=== PATIENT | female | born 2000 | race Caucasian/White ===

== ENCOUNTER 2018-05-31 16:17 | Emergency (ER) | payer SELFPAY ==
[2018-05-31] MEDS ORDERED: ACETAMINOPHEN 325 MG TABLET PO ONE (16:55)
--- NOTE | 2018-05-31 16:57 | ER Document Report ---
ED GI/ - General Chief Complaint: Abdominal Pain Stated Complaint: ABDOMINAL PAIN Time Seen by Provider: 05/31/18 16:54 Mode of Arrival: Ambulatory Information source: Patient Notes: Chief complaint: abdominal pain: History of complain:( obtained from----patient) 18 years old female who is , about 15 weeks presents today with lower abdominal pain which is dull in nature and not crampy. No vaginal discharges. No nausea vomiting fever chills or other constitutional symptoms. Denies any dysuria frequency urgency. Onset: Gradual Duration: Last 2 days Severity: Moderate Quality: Dull Context: Exacerbating factor and relieving factors: REVIEW OF SYSTEMS: CONSTITUTIONAL : Denies fever, chills, or sweats. Denies recent illness. EENT: Denies eye, ear, throat, or mouth pain or symptoms. Denies nasal or sinus congestion or discharge. Denies throat, tongue, or mouth swelling or difficulty swallowing. CARDIOVASCULAR: Denies chest pain. Denies palpitations or racing or irregular heart beat. Denies ankle edema. RESPIRATORY: Denies cough, cold, or chest congestion. Denies shortness of breath, difficulty breathing, or wheezing. GASTROINTESTINAL: Denies distention. Denies nausea, vomiting, or diarrhea. Denies blood in vomitus, stools, or per rectum. Denies black, tarry stools. Denies constipation. GENITOURINARY: Denies difficulty urinating, painful urination, burning, frequency, blood in urine, or discharge. FEMALE GENITOURINARY: Denies vaginal bleeding, heavy or abnormal periods, irregular periods. Denies vaginal discharge or odor. MUSCULOSKELETAL: Denies back or neck pain or stiffness. Denies joint pain or swelling. SKIN: Denies rash, lesions or sores. HEMATOLOGIC : Denies easy bruising or bleeding. LYMPHATIC: Denies swollen, enlarged glands. NEUROLOGICAL: Denies confusion or altered mental status. Denies passing out or loss of consciousness. Denies dizziness or lightheadedness. Denies headache. Denies weakness or paralysis or loss of use of either side. Denies problems with gait or speech. Denies sensory loss, numbness, or tingling. Denies seizures. PSYCHIATRIC: Denies anxiety or stress. Denies depression, suicidal ideation, or homicidal ideation. ALL OTHER SYSTEMS REVIEWED AND NEGATIVE. PHYSICAL EXAMINATION: GENERAL: Well-appearing, well-nourished and in no acute distress. HEAD: Atraumatic, normocephalic. EYES: Pupils equal round and reactive to light, extraocular movements intact, conjunctiva are normal. ENT: Nares patent, oropharynx clear without exudates. Moist mucous membranes. NECK: Normal range of motion, supple without lymphadenopathy LUNGS: Breath sounds clear to auscultation bilaterally and equal. No wheezes rales or rhonchi. HEART: Regular rate and rhythm without murmurs ABDOMEN: Soft, nontender, nondistended abdomen. No guarding, no rebound. No masses appreciated. Female : deferred Musculoskeletal: Normal range of motion, no pitting or edema. No cyanosis. NEUROLOGICAL: Cranial nerves grossly intact. Normal speech, normal gait. Normal sensory, motor exams PSYCH: Normal mood, normal affect. SKIN: Warm, Dry, normal turgor, no rashes or lesions noted. Dictation was performed using [employer] voice recognition software TRAVEL OUTSIDE OF THE [place] IN LAST 30 DAYS: No - HPI Notes: 05/31/18 16:56 Dictated - Related Data Allergies/Adverse Reactions: No Known Allergies Allergy (Unverified 05/31/18 16:19) Past Medical History - Social History Smoking Status: Never Smoker Chew tobacco use (# tins/day): No Frequency of alcohol use: None Drug Abuse: None Lives with: Family Family History: Reviewed & Not Pertinent Patient has suicidal ideation: No Patient has homicidal ideation: No Renal/ Medical History: Denies: Hx Peritoneal Dialysis Review of Systems - Review of Systems Notes: Dictated Physical Exam - Vital signs Vitals: Temp Pulse Resp BP Pulse Ox 97.8 F 84 18 133/63 H 98 05/31/18 16:36 05/31/18 16:36 05/31/18 16:36 05/31/18 16:36 05/31/18 16:36 - Notes Notes: Dictated Course - Vital Signs Vital signs: Temp Pulse Resp BP Pulse Ox 97.8 F 84 18 133/63 H 98 05/31/18 16:36 05/31/18 16:36 05/31/18 16:36 05/31/18 16:36 05/31/18 16:36 - Laboratory Result Diagrams: 05/31/18 17:30 Laboratory results interpreted by me: 05/31/18 05/31/18 05/31/18 17:25 17:30 17:30 WBC 12.2 H RDW 15.0 H Seg Neutrophils % 80.1 H Lymphocytes % 11.2 L Absolute Neutrophils 9.8 H Beta HCG, Quant 30562.00 H Urine Urobilinogen 2.0 H Ur Leukocyte Esterase LARGE H - Diagnostic Test Radiology reviewed: Reports reviewed - Radiology report does live intrauterine of 15 weeks and 5 days Discharge - Discharge Clinical Impression: Abdominal pain affecting Condition: Fair Disposition: HOME, SELF-CARE Instructions: ([facility])
[2018-05-31 17:42] LABS: ABSOLUTE EOSINOPHILS # (AUTO) 0.3 10^3/uL (0.0-0.6); ABSOLUTE LYMPHOCYTES (AUTO) 1.4 10^3/uL (0.5-4.7); ABSOLUTE MONOCYTES (AUTO) 0.8 10^3/uL (0.1-1.4); ABSOLUTE NEUT (AUTO) 9.8 10^3/uL (1.7-8.2); BASOPHILS % (AUTO) 0.3 % (0-2); EOSINOPHILS % (AUTO) 2.1 % (0-6); HEMATOCRIT 37.4 % (36.0-47.0); HEMOGLOBIN 12.9 g/dL (12.0-15.5); LYMPHOCYTES % (AUTO) 11.2 % (13-45); MEAN CORPUSCULAR HGB CONC 34.5 g/dL (32.0-36.0); MEAN CORPUSCULAR VOLUME 81 fl (80-97); MONOCYTES % (AUTO) 6.3 % (3-13); PLATELET COUNT 245 10^3/uL (150-450); RED BLOOD COUNT 4.61 10^6/uL (3.72-5.28); SEGMENTED NEUTROPHILS % (AUTO) 80.1 % (42-78); TOTAL CELLS COUNTED % (AUTO) 100 %; WHITE BLOOD COUNT 12.2 10^3/uL (4.0-10.5)
[2018-05-31 18:01] LABS: APPEARANCE,URINE TURBID; BILIRUBIN,URINE NEGATIVE (NEGATIVE); COLOR,URINE YELLOW; GLUCOSE, URINE NEGATIVE (NEGATIVE); KETONES,URINE NEGATIVE (NEGATIVE); LEUKOCYTE ESTERASE,URINE LARGE (NEGATIVE); NITRITE,URINE NEGATIVE (NEGATIVE); PROTEIN,URINE NEGATIVE (NEGATIVE); URINE SPECIFIC GRAVITY 1.014
--- NOTE | 2018-05-31 18:29 | RADIOLOGY REPORT (SQ) ---
EXAM DESCRIPTION: U/S 1TRIMESTER/1GEST W/DOPPLER COMPLETED DATE/TIME: 05/31/2018 6:12 pm REASON FOR STUDY: and abdominal pain COMPARISON: None. TECHNIQUE: Transabdominal static and realtime grayscale images acquired of the pelvis. Additional se lected spectral and color Doppler images recorded. All images stored on PACs. bHCG: Not applicable. CLINICAL DATES: 14 week 3 day. LIMITATIONS: None. FINDINGS: FETUS: Single Living intrauterine . ULTRASOUND EGA: 15 week 5 day. ULTRASOUND JOHN: 11/17/2018. EFW: Not applicable less than 20 weeks. CRL: 9.8 cm. FHR: 155 beats per minute. SURVEY: No visualized anomalies. AMNIOTIC FLUID: Adequate amount. PLACENTA: Posterior low lying. SUBCHORIONIC BLEED: No. SIZE OF BLEED: Not applicable. UTERUS: No masses. No anomalies. CERVICAL LENGTH: 4 cm. Closed. RIGHT ADNEXA: Ovary not identified due to poor acoustical window. No adnexal free fluid. No adnexal masses. LEFT ADNEXA: Ovary not identified due to poor acoustical window. No adnexal free fluid. No adnexal masses. FREE FLUID: None. OTHER: No other significant finding. IMPRESSION: LIVING INTRAUTERINE . EGA 15 WEEK 5 DAY. POSTERIOR LOW LYING PLACENTA. WILL NEED FOLLOW-UP PRIOR TO DELIVERY. Trimester of : First - 0 to 13 weeks. TECHNICAL DOCUMENTATION: JOB ID: [id number] [employer]- All Rights Reserved rev Reading location - IP/workstation name: [email or web address]
[2018-05-31 20:09] VITALS: BP 131/70
== END 2018-05-31 19:58 | disposition home or self-care (01) ==
LOC: ER 16:17
DX: O26.92 Pregnancy related conditions, unspecified, second trimester (principal); R10.9 Unspecified abdominal pain; Z3A.15 15 weeks gestation of pregnancy
CPT/HCPCS: 36415; 76801; 81001; 84702; 85025; 86900; 86901; 93976; 99284

== ENCOUNTER 2018-07-12 15:19 | Outpatient (CLI) | payer MEDICAID ==
[2018-07-12] MEDS: RINGERS SOLUTION,LACTATED 1,000 ML IV ONE (15:58)
[2018-07-12 16:14] LABS: APPEARANCE,URINE SLIGHTLY-CLOUDY; BILIRUBIN,URINE NEGATIVE (NEGATIVE); COLOR,URINE YELLOW; GLUCOSE, URINE NEGATIVE (NEGATIVE); KETONES,URINE TRACE mg/dL (NEGATIVE); LEUKOCYTE ESTERASE,URINE TRACE (NEGATIVE); NITRITE,URINE NEGATIVE (NEGATIVE); PROTEIN,URINE NEGATIVE (NEGATIVE); URINE SPECIFIC GRAVITY 1.015; UROBILINOGEN,URINE NEGATIVE mg/dL (<2.0)
[2018-07-12 16:22] LABS: URINE AMPHETAMINES SCREEN NEGATIVE; URINE BARBITURATES SCREEN NEGATIVE; URINE BENZODIAZEPINES SCREEN NEGATIVE; URINE COCAINE SCREEN NEGATIVE; URINE MARIJUANA (THC) SCREEN NEGATIVE; URINE METHADONE SCREEN NEGATIVE; URINE PHENCYCLIDINE SCREEN NEGATIVE
--- NOTE | 2018-07-12 16:28 | L&D Progress Notes ---
PROGRESS NOTES Datetime Report Generated by CPN: 07/12/2018 16:28 PROGRESS NOTE Impression: Labor Procedures: Ultrasound Procedures- Other: vaginal cultures Plan: Continue Present Management; Antibiotic Therapy; Anticipate Vaginal Delivery Vital Signs : Reviewed; Within Normal Limits Comment: Pt sengt to L_D from office secondary to cervical dilatation at 221-6/7 weeks. She has been seen only twice in the office. Her anantomy scan was today and bulging membranes were noted and a CL could not be obtained. Vaginal cultures obtained, shine catheter placed, pt in reverse [place]. Will inquire whether she will be accepted as a transfer to [place]. Pt is acceptable to this plan. VAGINAL EXAM Dilatation: 3-4 Effacement: 80-90 Station: high Contractions: none MEMBRANES Membranes: Bulging FETUS A FHR - Baseline: 140s Monitoring: External US Variability: Moderate 6-25bpm Accelerations: 10X10 Decelerations: None FHR Category: Category I : 21.6 SIGNATURE SIGNATURE: [id number] Signature: with User ID: [email or web address]
[2018-07-12] MEDS ORDERED: PENICILLIN G POTASSIUM 5,000,000 UNIT in DEXTROSE 5%-WATER 100 ML IV ONE (16:31)
[2018-07-12] MEDS: PENICILLIN G-K 5 MILLION UNIT VIAL IV ONE (16:54)
--- NOTE | 2018-07-12 17:15 | RADIOLOGY REPORT (SQ) ---
EXAM DESCRIPTION: U/S OB LIMITED COMPLETED DATE/TIME: 07/12/2018 5:01 pm REASON FOR STUDY: 22 weeks with bulging membranes COMPARISON: None. TECHNIQUE: Limited transabdominal trans labial grayscale ultrasound for evaluation of specific reque sted obstetrical parameters. LIMITATIONS: None. FINDINGS: CERVICAL LENGTH: 1.9 cm. Dilated 1.4 cm the internal os. FHR: 133 beats per minute. PRESENTATION: Cephalic. PLACENTA: Low lying posterior placenta. ANATOMY: Not assessed OTHER: No other significant findings. IMPRESSION: LIMITED OBSTETRICAL ULTRASOUND WITH MEASURED PARAMETERS DELINEATED ABOVE. Trimester of : Second trimester - 13 weeks 1 day to 27 weeks 6 days. TECHNICAL DOCUMENTATION: JOB ID: [id number] [employer]- All Rights Reserved Reading location - IP/workstation name: [email or web address]
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
[2018-07-12 17:24] LABS: BACTERIA (WET MOUNT) 3+ BACTERIA SEEN; EPITHELIALS (WET MOUNT) 3+ EPITHELIALS SEEN; RBCS (WET MOUNT) NO RBCS SEEN; T.VAGINALIS (WET MOUNT) NO TRICHOMONAS SEEN; WBCS (WET MOUNT) 2+ WBCS SEEN; YEAST (WET MOUNT) NO YEAST SEEN
[2018-07-12 18:47] LABS: CHLAM PCR NOT DETECTED (NOT DETECT); GON PCR NOT DETECTED (NOT DETECT)
[2018-07-12] MEDS ORDERED: TERBUTALINE SULFATE INJ/PF 1 MG/1 ML SDV ONE (19:17)
[2018-07-12] MEDS: TERBUTALINE SULFATE INJ/PF 1 MG/1 ML SDV SUBCUT ONE ×2 (19:22→19:59)
[2018-07-12] MEDS ORDERED: PENICILLIN G-K 5 MILLION UNIT VIAL ONE (20:18)
[2018-07-12] MEDS: PENICILLIN G-K 5 MILLION UNIT VIAL ONE (20:33)
[2018-07-12] MEDS ORDERED: RINGERS SOLUTION,LACTATED 1,000 ML IV PRN (20:38)
[2018-07-12] MEDS: PENICILLIN G POTASSIUM 2,500,000 UNIT in DEXTROSE 5%-WATER 50 ML IV SCH (20:40)
== END 2018-07-12 20:57 | disposition short-term general hospital (02) ==
LOC: LC 15:19
PROVIDERS: ATTEND Obstetrics & Gynecology
DX: Z34.92 Encounter for supervision of normal pregnancy, unspecified, second trimester (principal); Z3A.13 13 weeks gestation of pregnancy
CPT/HCPCS: 94760; 87210; 81001; 80307; 87491; 87591; 76815; J2540; J3105

== ENCOUNTER 2018-09-26 21:32 | Emergency (ER) | payer MEDICAID ==
[2018-09-27] MEDS ORDERED: HYDROXYZINE PAMOATE 50 MG CAPSULE PO ONE (01:03)
[2018-09-27] MEDS ORDERED: IBUPROFEN 600 MG TABLET PO ONE (01:08)
--- NOTE | 2018-09-27 01:09 | ER Document Report ---
HPI - HPI Patient complains to provider of: Anxiety attack Time Seen by Provider: 09/27/18 00:49 Onset: Yesterday Onset/Duration: Sudden, Gone Quality of pain: Achy Severity: Mild Pain Level: 2 Context: 18-year-old female presented to ED for complaint of an anxiety attack tonight. She states she has had these in the past. She states she has a history of anxiety depression and panic attacks. She states she was visiting during her boyfriend and his residents watching a movie when she also only started hyperventilating and passed out. Patient states she did not have a distance any stress or any other reason for the panic attack. She states she has a headache at this time. When I walked into the room she was sleeping quietly in the bed and her boyfriend woke her up. After she woke up, she stated she was having a headache. When boyfriend states she passed out, she was laying on the couch and did not fall off the couch or hit her head. Associated Symptoms: Other - Headache and anxiety attack Exacerbated by: Denies Relieved by: Denies Similar symptoms previously: Yes Recently seen / treated by doctor: No - ROS ROS below otherwise negative: Yes - CONSTITUTIONAL Constitutional: DENIES: Fever, Chills - EENT EENT: DENIES: Sore Throat, Ear Pain, Nasal Drainage-Clear, Nasal Drainage-Pur ulent, Congestion, Eye problems - NEURO Neurology: REPORTS: Headache. DENIES: Weakness, Vision blurred, Dizzinesss / Vertigo - CARDIOVASCULAR Cardiovascular: DENIES: Chest pain - RESPIRATORY Respiratory: DENIES: Trouble Breathing, Coughing - GASTROINTESTINAL Gastrointestinal: DENIES: Abdominal Pain, Nausea, Patient vomiting, Diarrhea, Constipation, Black / Bloody Stools - URINARY Urinary: DENIES: Dysuria, Urgency, Frequency - REPRODUCTIVE Reproductive: DENIES: :, Postmenopausal, Abnormal bleeding / discharge - MUSCULOSKELETAL Musculoskeletal: DENIES: Extremity pain, Back Pain, Neck Pain, Swelling - DERM Skin Color: Normal, [place] Skin Problems: None Past Medical History - General Information source: Patient - Social History Smoking Status: Former Smoker Cigarette use (# per day): No Chew tobacco use (# tins/day): No Smoking Education Provided: No Frequency of alcohol use: None Drug Abuse: None Lives with: Parents Family History: Reviewed & Not Pertinent Patient has suicidal ideation: No Patient has homicidal ideation: No - Past Medical History Cardiac Medical History: Reports: Hx Hypercholesterolemia Pulmonary Medical History: Reports: None EENT Medical History: Reports: None Neurological Medical History: Reports: None Endocrine Medical History: Reports: None Renal/ Medical History: Reports: None Malignancy Medical History: Reports: None GI Medical History: Reports: None Musculoskeletal Medical History: Reports None Skin Medical History: Reports None Psychiatric Medical History: Reports: Hx Anxiety, Hx Depression - anxiety attacks, Other - Panic attack Traumatic Medical History: Reports: None Infectious Medical History: Reports: None Surgical Hx: Negative Past Surgical History: Reports: None - Immunizations Immunizations up to date: Yes Vertical Provider Document - CONSTITUTIONAL Agree With Documented VS: Yes Exam Limitations: No Limitations General Appearance: WD/WN, No Apparent Distress - INFECTION CONTROL TRAVEL OUTSIDE OF THE [place] IN LAST 30 DAYS: No - HEENT HEENT: Atraumatic, Normal ENT Exam, Normocephalic, PERRLA - NECK Neck: Normal Inspection - RESPIRATORY Respiratory: Breath Sounds Normal, No Respiratory Distress, Chest Non-Tender - CARDIOVASCULAR Cardiovascular: Regular Rate, Regular Rhythm - GI/ABDOMEN Gastrointestinal: Abdomen Soft, Abdomen Non-Tender, No Organomegaly, Normal Bowel Sounds - BACK Back: Normal Inspection - MUSCULOSKELETAL/EXTREMETIES Musculoskeletal/Extremeties: MAEW, FROM, Non-Tender - NEURO Level of Consciousness: Awake, Alert, Appropriate Motor/Sensory: No Motor Deficit, No Sensory Deficit, No Pronator Drift - DERM Integumentary: Warm, Dry, No Rash Course - Re-evaluation Re-evalutation: 09/27/18 01:14 Patient was resting quietly sleeping when I first examined her. When I woke her up she was alert oriented pupils equal and react to light respirations regular and unlabored speaking in full sentences and able to walk with a even steady gait. Patient had equal reflexes on either side equal strength on either side. She was treated with ibuprofen for her headache and Vistaril to help her to rest due to the fact that she said she was concerned she would be able to go back to sleep after having a panic attack tonight. Patient has been instructed to follow-up with her primary care provider and her mental health provider by telephone tomorrow to schedule follow-up appointments for this panic attack. Patient was able to verbalize understanding and agreement with treatment plan and patient was discharged home. - Vital Signs Vital signs: Temp Pulse Resp BP Pulse Ox 99.4 F 79 18 131/77 H 79 L 09/26/18 21:33 09/26/18 21:33 09/26/18 21:33 09/26/18 21:33 09/26/18 21:33 Discharge - Discharge Clinical Impression: Panic attacks Condition: Stable Disposition: HOME, SELF-CARE Instructions: Anxiety ([facility]) Additional Instructions: You were seen today for a panic attack and a headache. You state you have a history of anxiety depression and panic attacks. You were treated today with Vistaril for the anxiety and ibuprofen for your headache. Please follow-up with your mental health provider in the morning by telephone to schedule a follow-up appointment. Please drink more water as you need to increase your p.o. intake. Ibuprofen Ibuprofen is an excellent, safe drug for pain control. In addition, it has potent antiinflammatory effects which are beneficial, especially in the treatment of injuries, arthritis, or tendonitis. It's best to take ibuprofen with food. Persons with ulcer disease or allergy to aspirin should notify their physician of this before taking ibuprofen. Take the medication exactly as prescribed. Don't take additional doses unless instructed to do so by your doctor. If you develop wheezing, shortness of breath, hives, faintness, stomach pain, vomiting, or dark black stools, return for re-evaluation at once. FOLLOW-UP CARE: If you have been referred to a physician for follow-up care, call the physicians office for an appointment as you were instructed or within the next two days. If you experience worsening or a significant change in your symptoms, notify the physician immediately or return to the Emergency Department at any time for re-evaluation. Forms: Elevated Blood Pressure Referrals: MARIELY BENNETT PA-C [Primary Care Provider] - Follow up as needed
[2018-09-27 01:17] VITALS: BP 120/70
== END 2018-09-27 01:19 | disposition home or self-care (01) ==
LOC: ER 21:32
DX: F41.9 Anxiety disorder, unspecified (principal); R51 Headache; E78.00 Pure hypercholesterolemia, unspecified
CPT/HCPCS: 99283; J3490 ×2

== ENCOUNTER 2018-10-30 11:51 | Emergency (ER) | payer MEDICAID, OTHER ==
[2018-10-30 12:12] VITALS: BP 136/72
--- NOTE | 2018-10-30 12:20 | ER Document Report ---
ED Extremity Problem, Lower - General Chief Complaint: Ankle Pain Stated Complaint: ANKLE INJURY Time Seen by Provider: 10/30/18 12:09 Primary Care Provider: [facility] [Provider Group] - Follow up as needed MARIELY BENNETT PA-C [Primary Care Provider] - Follow up as needed Mode of Arrival: Wheelchair Information source: Patient Notes: 18-year-old female presents to ED for complaint of left ankle pain for the last week. She states a week ago she tried to jump over a [place] and landed wrong in the ditch. She states she has been walking on it but today the pain was too bad for her to walk on. She is alert oriented respirations regular and unlabored speaking in full sentences. There is no bruising, no swelling, and no abnormalities noted. She does have full range of motion to the ankle. But she states it is very painful to move or walk. TRAVEL OUTSIDE OF THE [place] IN LAST 30 DAYS: No - HPI Patient complains to provider of: Injury, Pain. No: Swelling Location: Ankle Occurred: Last week Where: Outdoors Onset/Duration: Persistent Quality of pain: Sharp, Throbbing Severity: Moderate Pain Level: 4 Context: Twisted, Wearing shoes Recent injury: Yes Associated symptoms: Painful ambulation Exacerbated by: Hanging down, Movement, Walking Relieved by: Elevation, Ice, Rest - Related Data Allergies/Adverse Reactions: Iodine and Iodide Containing Produc Adverse Reaction (Verified 10/30/18 11:52) Past Medical History - General Information source: Patient - Social History Smoking Status: Current Every Day Smoker - Vapor cigarette Smoking Education Provided: Yes - 4 minutes Frequency of alcohol use: None Drug Abuse: None Lives with: Spouse/Significant other Family History: Reviewed & Not Pertinent Patient has suicidal ideation: No Patient has homicidal ideation: No - Past Medical History Cardiac Medical History: Reports: Hx Hypercholesterolemia Pulmonary Medical History: Reports: None EENT Medical History: Reports: None Neurological Medical History: Reports: None Endocrine Medical History: Reports: None Renal/ Medical History: Reports: None Malignancy Medical History: Reports: None GI Medical History: Reports: None Musculoskeletal Medical History: Reports None Skin Medical History: Reports None Psychiatric Medical History: Reports: Hx Anxiety, Hx Depression - anxiety attacks Traumatic Medical History: Reports: None Infectious Medical History: Reports: None Surgical Hx: Negative Past Surgical History: Reports: None - Immunizations Immunizations up to date: Yes Review of Systems - Review of Systems Constitutional: No symptoms reported EENT: No symptoms reported Cardiovascular: No symptoms reported Respiratory: No symptoms reported Gastrointestinal: No symptoms reported Genitourinary: No symptoms reported Female Genitourinary: No symptoms reported Musculoskeletal: Ankle swelling Skin: No symptoms reported Hematologic/Lymphatic: No symptoms reported Neurological/Psychological: No symptoms reported Physical Exam - Vital signs Vitals: Temp Pulse Resp BP Pulse Ox 98.1 F 103 H 18 136/72 H 98 10/30/18 12:11 10/30/18 12:11 10/30/18 12:11 10/30/18 12:11 10/30/18 12:11 Interpretation: Normal - General General appearance: Appears well, Alert - HEENT Head: Normocephalic, Atraumatic Eyes: Normal Pupils: PERRL - Respiratory Respiratory status: No respiratory distress Chest status: Nontender Breath sounds: Normal Chest palpation: Normal - Cardiovascular Rhythm: Regular Heart sounds: Normal auscultation Murmur: No - Abdominal Inspection: Normal Distension: No distension Bowel sounds: Normal Tenderness: Nontender Organomegaly: No organomegaly - Back Back: Normal, Nontender - Extremities General upper extremity: Normal inspection, Nontender, Normal color, Normal ROM, Normal temperature General lower extremity: Normal inspection, Normal color, Normal ROM, Normal temperature, Normal weight bearing. No: Tamera's sign Ankle: Tender. No: Abrasion, Deformity, Ecchymosis, Edema, Instability, Laceration, Limited ROM, Positive Watson's test, Unable to bear weight - Neurological Neuro grossly intact: Yes Cognition: Normal Orientation: AAOx4 Igor Coma Scale Eye Opening: Spontaneous Igor Coma Scale Verbal: Oriented [place] Coma Scale Motor: Obeys Commands [place] Coma Scale Total: 15 Speech: Normal Motor strength normal: LUE, RUE, LLE, RLE Sensory: Normal - Psychological Associated symptoms: Normal affect, Normal mood - Skin Skin Temperature: Warm Skin Moisture: Dry Skin Color: Normal Course - Re-evaluation Re-evalutation: 10/30/18 12:31 Spoke with x-ray tech and they are still not ready to do the x-ray. They stated they would do a portable in the room and they are not ready yet. - Vital Signs Vital signs: Temp Pulse Resp BP Pulse Ox 98.1 F 103 H 18 136/72 H 98 10/30/18 12:11 10/30/18 12:11 10/30/18 12:11 10/30/18 12:11 10/30/18 12:11 - Diagnostic Test Radiology reviewed: Image reviewed, Reports reviewed Procedures - Immobilization Left Ankle Time completed: 13:25 Immobilizer type: Jhonny wrap Performed by: PCT Post-Proc Neuro Vasc Exam: Normal Alignment checked and good: Yes Discharge - Discharge Clinical Impression: Left ankle pain Qualifiers: Chronicity: acute Qualified Code(s): M25.572 - Pain in left ankle and joints of left foot Condition: Stable Disposition: HOME, SELF-CARE Additional Instructions: SPRAINED ANKLE: Your sprained ankle results from stretching or tearing of the ligaments which support the ankle. This usually results from twisting the foot inward and under. The ligaments will require time and protection in order to heal properly. Many ankle sprains are quite disabling, and should be taken seriously. The usual treatment for an ankle sprain is cold packs; protection with tape, splints, or wraps; elevation; and staying off the ankle for at least a day. As the ankle improves, you can walk IF it's not painful to bear weight. Sports are best postponed until healing is complete. More serious sprains usually require strengthening exercises after early healing. Your physician has assessed the seriousness of the ligament injury to your ankle. However, the treatment may change, depending on how your ankle progresses. If further exams were recommended, it is important that you follow through. Call the doctor if your foot becomes numb, painful, or severely swollen. JHONYN WRAP: A compression dressing (jhonny wrap) has been placed. This helps hold the area still. It limits swelling and internal bleeding. The wrap should be comfortably snug -- not tight. You should feel a sense of pressure, but not severe pain under the wrap. Unless the physician tells you otherwise, you can adjust the wrap for comfort. If the wrap causes symptoms suggesting it's too tight -- uncomfortable pressure, swelling or discoloration beyond the wrap, numbness, or severe pain -- you must loosen the wrap. If these symptoms don't resolve promptly, return for re-evaluation. ICE & ELEVATION: Apply ice packs frequently against the painful area. Many different schedules are recommended, such as "20 minutes on, 20 minutes off" or "one hour ice, two hours rest." If you need to work, you may need to go longer between ice treatments. You should plan to have the area ice packed AT LEAST one-fourth of the time. The ice should be applied over the wrap, tape, or splint, or over a layer of cloth -- not directly against the skin. Some ice bags have a built-in cloth and can be put directly on the skin. Your injured part should be elevated as much as possible over the next 48 hours. Try to keep the injury above the level of the heart. Avoid use of the injured area. Elevation and rest will decrease the swelling. USE OF [id number] IBUPROFEN: Ibuprofen (Advil, Nuprin, Medipren, Motrin IB) is a medication for fever and pain control. In addition, it has anti- inflammatory effects which may be beneficial, especially in the treatment of injuries. It's best to take ibuprofen with food. Persons with ulcer disease or allergy to aspirin should notify their physician of this before taking ibuprofen. Ibuprofen can be given every four to six hours, for a total of four doses daily. Age Pain or fever dose Antiinflammatory dose 6-8 yr 200 mg (1 tab) 200 mg (1 tab) 9-11 yr 200 mg (1 tab) 200-400 mg (1-2 tab) 11-14 yr 200-400 mg (1-2 tab) 400 mg (2 tab) 15-adult 400 mg (2 tab) 600 mg (3 tab) Ankle Exercise Program To restore the ankle to normal, it's important to strengthen the muscles that support it -- especially those that lift the foot upward. Good muscle tone will keep stress off the injury while it heals. EARLY - Once the doctor allows you to walk on the ankle, you can begin. Lean your back against a wall. Standing on your heels, lift the balls of both feet up, hold a second, then back down. Work up to 100 repetitions. Next, using the wall for balance, stand on one foot. Lift the heel up, then down. Work up to 100 repetitions for each foot. BALANCE TRAINING - To retrain the ankle to react to "tipping", stand on one foot for two minutes. Go from flat-footed to standing on the toes and back again slowly. Repeat with the other foot. LATER - When your ankle has regained full motion and you're walking pain- free, begin exercise against resistance. In a sitting position, pull the top of the foot towards you against resistance 20 times. Use either elastic material or a weight attached to the toes. Swing the knee so the foot is to the side of the body, and repeat. FOLLOW-UP CARE: If you have been referred to a physician for follow-up care, call the physicians office for an appointment as you were instructed or within the next two days. If you experience worsening or a significant change in your symptoms, notify the physician immediately or return to the Emergency Department at any time for re-evaluation. Forms: Elevated Blood Pressure, Smoking Cessation Education, Return to Work Referrals: MARIELY BENNETT PA-C [Primary Care Provider] - Follow up as needed [facility] [Provider [facility]] - Follow up as needed
--- NOTE | 2018-10-30 13:03 | RADIOLOGY REPORT (SQ) ---
EXAM DESCRIPTION: ANKLE LEFT COMPLETE COMPLETED DATE/TIME: 10/30/2018 12:45 pm REASON FOR STUDY: fell week ago continued pain COMPARISON: None. NUMBER OF VIEWS: Three views. TECHNIQUE: AP, lateral, and oblique radiographic images acquired of the left ankle. LIMITATIONS: None. FINDINGS: MINERALIZATION: Normal. BONES: No acute fracture or dislocation. No worrisome bone lesions. JOINTS: No effusions. SOFT TISSUES: No soft tissue swelling. No foreign body. OTHER: No other significant finding. IMPRESSION: NEGATIVE STUDY OF THE LEFT ANKLE. NO RADIOGRAPHIC EVIDENCE OF ACUTE INJURY. TECHNICAL DOCUMENTATION: JOB ID: [id number] [employer]- All Rights Reserved Reading location - IP/workstation name: [email or web address]
== END 2018-10-30 13:25 | disposition home or self-care (01) ==
LOC: ER 11:51
DX: M25.572 Pain in left ankle and joints of left foot (principal); X50.0XXA Overexertion from strenuous movement or load, initial encounter; F17.200 Nicotine dependence, unspecified, uncomplicated; E78.00 Pure hypercholesterolemia, unspecified
CPT/HCPCS: 99283; 99406

== ENCOUNTER 2018-12-06 17:39 | Emergency (ER) | payer MEDICAID ==
[2018-12-06 17:53] VITALS: BP 121/68
[2018-12-06] MEDS ORDERED: METHYLPREDNISOLONE INJ 125 MG/2 ML SDV IV ONE (18:07)
[2018-12-06] MEDS ORDERED: DIPHENHYDRAMINE HCL 50 MG/ML VIAL IV ONE (18:07)
[2018-12-06] MEDS ORDERED: FAMOTIDINE INJ/PF 20 MG/2 ML SDV IV ONE (18:07)
--- NOTE | 2018-12-06 18:09 | ER Document Report ---
ED Medical Screen (RME) - General Chief Complaint: Allergic Reaction Stated Complaint: POSSIBLE ALLERGIC REACTION Time Seen by Provider: 12/06/18 18:05 Primary Care Provider: MARIELY BENNETT PA-C [Primary Care Provider] - Follow up as needed Mode of Arrival: Ambulatory Information source: Patient Notes: Patient is a 18-year-old female with a gluten allergy who reports difficulty swallowing and talking after eating bread and pasta. She is speaking in full and complete sentences however she does have a hoarse voice. Lung sounds are clear and equal bilaterally and patient swallowing without difficulty. I have greeted and performed a rapid initial assessment of this patient. A comprehensive ED assessment and evaluation of the patient, analysis of test results and completion of the medical decision making process will be conducted by additional ED providers. Dictation of this chart was performed using voice recognition software; therefore, there may be some unintended grammatical errors. TRAVEL OUTSIDE OF THE [place] IN LAST 30 DAYS: No - Related Data Allergies/Adverse Reactions: Iodine and Iodide Containing Produc Adverse Reaction (Verified 12/06/18 17:41) Past Medical History - Past Medical History Cardiac Medical History: Reports: Hx Hypercholesterolemia Renal/ Medical History: Denies: Hx Peritoneal Dialysis Psychiatric Medical History: Reports: Hx Anxiety, Hx Depression - anxiety attacks - Immunizations Immunizations up to date: Yes Physical Exam - Vital signs Vitals: Temp Pulse Resp BP Pulse Ox 98.9 F 78 14 121/68 99 12/06/18 17:52 12/06/18 17:52 12/06/18 17:52 12/06/18 17:52 12/06/18 17:52 Course - Vital Signs Vital signs: Temp Pulse Resp BP Pulse Ox 98.9 F 78 14 121/68 99 12/06/18 17:52 12/06/18 17:52 12/06/18 17:52 12/06/18 17:52 12/06/18 17:52 Doctor's Discharge - Discharge Referrals: MARIELY BENNETT PA-C [Primary Care Provider] - Follow up as needed
[2018-12-06] MEDS ORDERED: NORMAL SALINE 1000 ML 1,000 ML IV ONE (19:27)
[2018-12-06] MEDS ORDERED: MAG HYDROX/AL HYDROX/SIMETH SUSP 30 ML UDCUP PO ONE (19:29)
--- NOTE | 2018-12-06 19:34 | ER Document Report ---
ED General - General Chief Complaint: Allergic Reaction Stated Complaint: POSSIBLE ALLERGIC REACTION Time Seen by Provider: 12/06/18 18:05 Primary Care Provider: MARIELY CARREON PA-C [Primary Care Provider] - Follow up tomorrow Mode of Arrival: Ambulatory Information source: Patient Notes: This is a 18-year-old female with a history of gluten sensitivity that ate bread and pasta at 10:40 AM and then had a peanut butter and jelly sandwich at 1:30 PM and started having some sensation that her throat was closing up. She had a hoarse voice in triage. She was given Benadryl, Pepcid and Solu-Medrol. TRAVEL OUTSIDE OF THE [place] IN LAST 30 DAYS: No - HPI Onset: Just prior to arrival Onset/Duration: Sudden Quality of pain: No pain Severity: None Pain Level: Denies Associated symptoms: denies: Chest pain, Fever, Shortness of breath Exacerbated by: Denies Relieved by: Denies Similar symptoms previously: Yes Recently seen / treated by doctor: No - Related Data Allergies/Adverse Reactions: Iodine and Iodide Containing Produc Adverse Reaction (Verified 12/06/18 17:41) Past Medical History - General Information source: Patient - Social History Smoking Status: Never Smoker Cigarette use (# per day): No Chew tobacco use (# tins/day): No Frequency of alcohol use: None Drug Abuse: None Lives with: Family Family History: Reviewed & Not Pertinent Patient has suicidal ideation: No Patient has homicidal ideation: No - Past Medical History Cardiac Medical History: Reports: Hx Hypercholesterolemia Renal/ Medical History: Denies: Hx Peritoneal Dialysis Psychiatric Medical History: Reports: Hx Anxiety, Hx Depression - anxiety attacks Surgical Hx: Negative - Immunizations Immunizations up to date: Yes Review of Systems - Review of Systems Constitutional: denies: Chills, Fever EENT: See HPI Cardiovascular: No symptoms reported Respiratory: See HPI Gastrointestinal: See HPI Genitourinary: No symptoms reported Female Genitourinary: No symptoms reported Musculoskeletal: No symptoms reported Skin: No symptoms reported Hematologic/Lymphatic: No symptoms reported Neurological/Psychological: No symptoms reported Physical Exam - Vital signs Vitals: Temp Pulse Resp BP Pulse Ox 98.9 F 78 14 121/68 99 12/06/18 17:52 12/06/18 17:52 12/06/18 17:52 12/06/18 17:52 12/06/18 17:52 Notes: Physical exam: GENERAL: 18-year-old female, alert and oriented x3, no acute distress. She is speaking in a whisper. HEAD: Atraumatic, normocephalic. EYES: Pupils equal round and reactive to light, extraocular movements intact, sclera anicteric, conjunctiva are normal. ENT: TMs normal, nares patent, oropharynx clear without exudates. There is mild erythema in the posterior pharynx. There is no uvula swelling. There is no swelling in the soft or hard palate. Patient has no stridor or drooling. She swallows just fine. Moist mucous membranes. NECK: Normal range of motion, supple without obvious mass or JVD. LUNGS: Breath sounds clear to auscultation bilaterally and equal. No wheezes rales or rhonchi. HEART: Regular rate and rhythm without murmurs, rubs or gallops. ABDOMEN: Soft, normoactive bowel sounds. No tenderness to palpation. No guarding, no rebound. No masses appreciated. EXTREMITIES: Normal range of motion, no pitting or edema. No clubbing or cyanosis. NEUROLOGICAL: Cranial nerves II through XII grossly intact. Normal speech, moving all extremities. PSYCH: Normal mood, normal affect. SKIN: Warm, Dry, normal turgor, no rashes or lesions noted. Course - Re-evaluation Re-evalutation: 12/07/18 03:33 Patient observed several hours. She has improved. Discharge in stable condition. - Vital Signs Vital signs: Temp Pulse Resp BP Pulse Ox 98 F 75 18 121/68 98 12/06/18 22:30 12/06/18 22:30 12/06/18 22:30 12/06/18 22:30 12/06/18 22:30 Discharge - Discharge Clinical Impression: Acute allergic reaction Condition: Stable Disposition: HOME, SELF-CARE Additional Instructions: Recommendations: I would follow-up with your primary care doctor (Mariely carreon) tomorrow if you need a referral to an applications trainer. Otherwise I put the number for [facility] down below for allergy testing. Return to the emergency room for worsening shortness of breath, ability to swallow, swelling or any concerns or getting worse. Take the medicines as prescribed. Followup with an applications trainer for allergy testing: [facility]: Address: [address] [place], [place] [id number] Prescriptions: Diphenhydramine HCl [Benadryl 25 mg Capsule] 1 cap PO Q4 PRN #1 pkg PRN Reason: Famotidine [Pepcid 20 mg Tablet] 20 mg PO DAILY #12 tablet Prednisone [Deltasone 20 mg Tablet] 3 tab PO DAILY 5 Days tablet Forms: Return to Work Referrals: MARIELY CARREON PA-C [Primary Care Provider] - Follow up tomorrow
== END 2018-12-06 22:31 | disposition home or self-care (01) ==
LOC: ER 17:39
DX: T78.40XA Allergy, unspecified, initial encounter (principal); R09.89 Other specified symptoms and signs involving the circulatory and respiratory systems; R49.0 Dysphonia; X58.XXXA Exposure to other specified factors, initial encounter
CPT/HCPCS: 99283; 96361; 96374; 96375; J1200; J3490; J2930; J7030; S0028